=== PATIENT | male | born 1985 | race Caucasian/White ===

== ENCOUNTER 2020-07-26 17:19 | Emergency (ER) | payer SELFPAY ==
[~2020-07-26] VITALS: Ht 180.3 cm; Wt 72.6 kg
[2020-07-26 17:23] VITALS: BP 94/46
[2020-07-26] MEDS ORDERED: NACL 0.9% 1,000 ML IV ONE (17:30)
--- NOTE | 2020-07-26 17:30 | NUR ---
PT BIBA FROM FOOD FOR LESS PARKING LOT FOR ETOH INTOXICATION. PT PRESENTS WITH SLURRED SPEECH, UNABLE TO OBTAIN INFORMATION FROM PATIENT
[2020-07-26 17:50] LABS: BASOPHILS # (AUTO) 0.1 K/uL (0.00-0.22); BASOPHILS % (AUTO) 0.9 % (0.0-2.0); EOSINOPHILS # (AUTO) 0.5 K/uL (0-0.4); EOSINOPHILS % (AUTO) 5.6 % (0.0-4.0); HEMATOCRIT 41.3 % (36-52); HEMOGLOBIN 13.9 g/dL (12.0-18.0); LYMPHOCYTES # (AUTO) 3.3 K/uL (2.0-11.5); LYMPHOCYTES % (AUTO) 34.3 % (20.5-51.1); MEAN CORPUSCULAR HEMOGLOBIN 29 pg (27-31); MEAN CORPUSCULAR HGB CONC 34 g/dL (33-37); MEAN CORPUSCULAR VOLUME 86.8 fL (80-94); MONOCYTES # (AUTO) 0.6 K/uL (0.8-1.0); MONOCYTES % (AUTO) 5.7 % (1.7-9.3); NEUTROPHILS # (AUTO) 5.2 K/uL (1.8-7.7); NEUTROPHILS % (AUTO) 53.5 % (42.2-75.2); PLATELET COUNT (AUTO) 236 K/uL (140-450); RED BLOOD CELL COUNT(AUTO) 4.75 MIL/uL (4.20-6.10); RED CELL DISTRIBUTION WIDTH 13.4 % (11.6-13.7); WHITE BLOOD COUNT (AUTO) 9.7 K/uL (4.8-10.8)
[2020-07-26 18:17] LABS: ALBUMIN 3.7 g/dL (3.4-5.0); ANION GAP 11.7 (8-16); CARBON DIOXIDE 26.6 mmol/L (21-32); POTASSIUM 3.3 mmol/L (3.5-5.1); TOTAL BILIRUBIN 0.7 mg/dL (0.0-1.0)
--- NOTE | 2020-07-26 19:15 | NUR ---
Received report from VARSHA Mora for continuation of care.
--- NOTE | 2020-07-26 19:26 | NUR ---
Changed soiled sheets and placed clean sheets for pt
--- NOTE | 2020-07-26 19:28 | NUR ---
pt sleeping in semi-fowlers positioning, IV left hand 20 gauge. 6 L nonrebreather. pt skin flushed. pt responds to painful stimuli and GCS 9.
[2020-07-26 21:23] LABS: APPEARANCE,URINE CLEAR (CLEAR); BILIRUBIN,URINE NEGATIVE (NEGATIVE); BLOOD, URINE NEGATIVE (NEGATIVE); COLOR,URINE YELLOW (YELLOW); LEUKOCYTE ESTERASE ,URINE NEGATIVE (NEGATIVE); NITRITE, URINE NEGATIVE (NEGATIVE); UGLUCOSE NEGATIVE (NEGATIVE)
[2020-07-26 21:56] LABS: BARBITURATE, URINE NEGATIVE ng/ml (NEG <=200); BENZODIAZEPINE, URINE NEGATIVE ng/mL (NEG <=200); CANNABINOID, URINE POSITIVE ng/mL (NEG <=50); COCAINE, URINE NEGATIVE ng/mL (NEG <=300)
[2020-07-26 21:57] LABS: OPIATE, URINE POSITIVE ng/mL (NEG <=2000); PHENCYCLIDINE SCREEN,URINE NEGATIVE ng/mL (NEG <=25)
[2020-07-26] MEDS ORDERED: AMMONIA AROMATIC 1 INHL INH ONE (22:21)
[2020-07-27] MEDS ORDERED: NACL 0.9% 1,000 ML IV ONE
--- NOTE | 2020-07-27 00:10 | NUR ---
pt pulled out iv site.
--- NOTE | 2020-07-27 04:41 | NUR ---
PT AWAKE AND ASKED FOR FOOD. RECEIVED TURKEY SANDWHICH AND APPLE JUICE. BLANKET RECEIVED PT WAS COLD
--- NOTE | 2020-07-27 04:55 | NUR ---
PT AMBULATED TO THE BATHROOM TO CHANGE INTO HIS OWN CLOTHING.
[2020-07-27 05:05] VITALS: BP 104/57
--- NOTE | 2020-07-27 05:05 | NUR ---
Patient discharged with v/s stable. Written and verbal after care instructions given and explained. Patient verbalized understanding. Ambulatory with steady gait. ID band removed. All questions addressed prior to discharge. Advised to follow up with PMD.
--- NOTE | 2020-07-29 02:34 | NUR ---
LATE ENTRY- NORMAL SALINE 0.9% DISCONTINUED AT 1900
== END 2020-07-27 05:05 | disposition home or self-care (01) ==
LOC: MED 17:19 → EDBD 17:19 → MED 07-27 05:05
DX: F10.129 Alcohol abuse with intoxication, unspecified (principal); R41.82 Altered mental status, unspecified; F15.10 Other stimulant abuse, uncomplicated; F11.10 Opioid abuse, uncomplicated; Y90.9 Presence of alcohol in blood, level not specified
CPT/HCPCS: 36415; 70450; 80053; 80305; 81003; 83605; 84484; 85025; 93005; 96360; 96361; 99285; C1758; G0482; J7030